=== PATIENT | female | born 1975 | race Caucasian/White ===

== ENCOUNTER 2017-10-16 09:47 | Emergency (ER) | END 2017-10-16 11:15 | disposition home or self-care (01) ==

== ENCOUNTER 2017-10-31 16:15 | Emergency (ER) | END 2017-10-31 19:35 | disposition left against medical advice (07) ==

== ENCOUNTER 2017-11-07 09:32 | Emergency (ER) | END 2017-11-07 11:52 | disposition home or self-care (01) ==